=== PATIENT | female | born 1950 | race Caucasian/White ===

== ENCOUNTER 2019-05-10 07:30 | Inpatient (IN) ==
--- NOTE | 2019-04-16 13:55 | PAT Medication Instructions ---
Medication Instructions Date of Service April 16, 2019 Home Medications Medications Rheumatoid Arthritis Injection 1 dose UD Sinus Tablet 1 dose PO HS acetaminophen [Tylenol Extra Strength] 1,000 mg PO UD PRN clopidogrel 75 mg PO QAM cranberry 400 mg PO QAM denosumab [Prolia] 60 mg SUBCUT UD fluticasone furoate-vilanterol [Breo Ellipta] 1 inh INHALATION UD PRN folic acid 1 mg PO TID methotrexate sodium 15 mg PO WK naproxen sodium [Aleve] 220 mg PO UD PRN omeprazole magnesium [Prilosec OTC] 20 mg PO HS prednisone 7.5 mg PO QAM simvastatin 20 mg PO QAM Continue as directed denosumab [Prolia] 60 mg SUBCUT UD ASK your surgeon for instructions naproxen sodium [Aleve] 220 mg PO UD PRN ASK your prescriber and surgeon methotrexate sodium 15 mg PO WK Rheumatoid Arthritis Injection 1 dose UD clopidogrel 75 mg PO QAM STOP taking 2 weeks before surgery cranberry 400 mg PO QAM DO NOT take the morning of surgery folic acid 1 mg PO TID Take morning of surgery With a small sip of water, OTHERWISE NOTHING TO EAT OR DRINK AFTER MIDNIGHT: prednisone 7.5 mg PO QAM simvastatin 20 mg PO QAM fluticasone furoate-vilanterol [Breo Ellipta] 1 inh INHALATION UD PRN (if needed) acetaminophen [Tylenol Extra Strength] 1,000 mg PO UD PRN (if needed) Take evening before surgery omeprazole magnesium [Prilosec OTC] 20 mg PO HS fluticasone furoate-vilanterol [Breo Ellipta] 1 inh INHALATION UD PRN (if needed) folic acid 1 mg PO TID acetaminophen [Tylenol Extra Strength] 1,000 mg PO UD PRN (if needed) Sinus Tablet 1 dose PO HS Other Notes If you have any questions please call us at [phone] or [phone] or [phone] or [phone]
--- NOTE | 2019-04-19 11:40 | Anesthesiology Consultation ---
Date of Service April 19, 2019 Assessment & Plan (1) Encounter for pre-operative examination: Chart Review Chart Review: Acceptable Risk for Surgery (pending pcp clearance) and Patient seen in Pre Admission Testing Teaching & Discussion Instructed NPO after midnight before surgery, except medications with 15 cc of water. Medication instructions provided according to the PAT guidelines. Plavix instructions per surgeon and prescriber. History Surgery Operation Date: 05/10/19 07:45 Proposed Procedures p L4-L5 Decompression and Fusion with Spinal Cord Monitoring - Jasvir Katz DO Height/Weight Height: 5 ft Weight: 79.5 kg Allergies Allergy/AdvReac Type Severity Reaction Status Date / Time No Known Allergies Allergy Verified 04/12/19 15:05 Medications Home Medications Medication Instructions Recorded Confirmed Last Taken Rheumatoid Arthritis Injection 1 dose UD 04/12/19 04/12/19 04/12/19 Sinus Tablet 1 dose PO HS 04/12/19 04/12/19 Unknown acetaminophen [Tylenol Extra 1,000 mg PO UD PRN 04/12/19 04/12/19 Unknown Strength] clopidogrel 75 mg PO QAM 04/12/19 04/12/19 Unknown cranberry 400 mg PO QAM 04/12/19 04/12/19 Unknown denosumab [Prolia] 60 mg SUBCUT UD 04/12/19 04/12/19 Unknown fluticasone furoate-vilanterol 1 inh INHALATION UD PRN 04/12/19 04/12/19 Unknown [Breo Ellipta] folic acid 1 mg PO TID 04/12/19 04/12/19 Unknown methotrexate sodium 15 mg PO WK 04/12/19 04/12/19 Unknown naproxen sodium [Aleve] 220 mg PO UD PRN 04/12/19 04/12/19 Unknown omeprazole magnesium [Prilosec OTC] 20 mg PO HS 04/12/19 04/12/19 Unknown prednisone 7.5 mg PO QAM 04/12/19 04/12/19 Unknown simvastatin 20 mg PO QAM 04/12/19 04/12/19 Unknown Past Medical History Medical History (Updated 04/23/19 @ 12:17 by Crow Choudhary) Acid reflux Amnesia SINGLE EPISODE ~8 YEARS AGO, PT STATES SHE WENT TO THE ER IN [place], SYMPTOMS LASTED A FEW HOURS, STATES NO ETIOLOGY FOUND IN ER. (TIA?) Asthma Using Breo only PRN, ~ twice per month History of stroke Pt reporting h/o "mini strokes in eyes", unable to provide more details. Follows with ophthalmology for this. On plavix from PCP. Attempted to obtain brain imaging from ophtho and PCP, none available. Nausea and vomiting after administration of anesthetic agent Obesity Rheumatoid arthritis On methotrexate and injectable Spinal stenosis Exercise / Class Metabolic Activity III < 4 Walking/Shop/Light housework (DENIES CP OR SOB WITH 1 FOS BUT DOES NOT DO OFTEN, HAS TO GO VERY SLOWLY 2/2 LE WEAKNESS 2/2 SPINAL STENOSIS) Past Family History Family History Sister Family history of diabetes mellitus Sister Family history of diabetes mellitus Past Surgical History Surgical History History of colonoscopy History of foot surgery R&L History of hernia surgery LAMBERTO-ESOPHAGEAL HERNIA History of left shoulder replacement History of total right knee replacement Past Anesthesia History No Hx of Anesthesia Complications and No Family Hx of Anesthesia Complications History of PONV No Hx of Motion Sickness and History of PONV (with foot surgery) Social History Smoking Status: Never smoker Do You Dip or Chew Tobacco: No Hx Alcohol Use: No Hx Substance Use: No substance use type: does not use Review of Systems Pt denies any recent chest pain, shortness of breath above baseline, palpitations, cough, fever or URI. Physical Exam Vital Signs BP: 148/72 (pt to see PCP prior to surgery) P: 69bpm SPO2: 98% RA T: 97.9 F R: 20 ENMT Mouth: + dentition abnormality (missing few bottom molars) and + dentures (full upper); no chipped teeth and no loose teeth Thyromental Distance: > or= 3.5 Finger Breadths (3.5) Mallampati Class: III Neck normal visual inspection; neck extension not limited Respiratory normal respiratory effort Auscultation: lungs clear to auscultation bilaterally Cardiovascular Rate/Rhythm: regular rate and regular rhythm Heart Sounds: no murmur Vessels: no carotid bruit Extremities: no edema Testing Laboratory Results 04/19/19 11:56 04/19/19 11:50 PT 10.2 Seconds (9.0-12.0) 04/19/19 11:56 INR 1.0 (0.9-1.1) 04/19/19 11:56 APTT 25.3 Seconds (21.0-31.0) 04/19/19 11:56 Urine Color Yellow 04/19/19 11:56 Urine Appearance Clear (Clear) 04/19/19 11:56 Urine pH 5.0 (4.5-7.5) 04/19/19 11:56 Ur Specific [place] 1.017 (1.000-1.030) 04/19/19 11:56 Urine Protein Negative (Negative) 04/19/19 11:56 Urine Glucose (UA) Negative (Negative) 04/19/19 11:56 Urine Ketones Negative (Negative) 04/19/19 11:56 Urine Nitrite Negative (Negative) 04/19/19 11:56 Ur Leukocyte Esterase 2+ (Negative) H 04/19/19 11:56 Urine WBC (Auto) 1-5 /hpf (0-5) 04/19/19 11:56 Urine RBC (Auto) 0-4 /hpf (0-4) 04/19/19 11:56 U Hyaline Cast (Auto) 1-5 /lpf (0-5) 04/19/19 11:56 U Epithel Cells (Auto) 0-5 /lpf (0-5) 04/19/19 11:56 Urine Bacteria (Auto) Negative (Negative) 04/19/19 11:56 Blood Type O Positive 04/19/19 11:56 Antibody Screen NEGATIVE 04/19/19 11:56 Electrocardiogram Date: 04/19/19 Findings: + SB @ (59bpm) Suspect V2/V3 lead reversal. Nonspecific T wave abnormality. Chest X-Ray Date: 04/19/19 Findings: + NAD Echocardiogram Date: 04/22/17 EF: 60-65% Normal LV size. Left ventricle has normal systolic function. Normal RV size an d function. Thickened and calcified aortic valve. Mean gradient is 3 mmHg. Mild pulmonic regurgitation. Left atrium is normal. The aortic arch diameter measures 2.6 cm. The abdominal aorta diameter measures 2.1 cm. Pericardial spaces echo done suggested prominent epicardial fat, echodense effusion, or infiltrative process. Normal diastolic function. Small pericardial effusion seen. Cervical Spine Date: 04/19/19 IMPRESSION: 1. No convincing evidence of dynamic subluxation on extension or flexion positioning. The predental interval changes by less than 0.5 mm. 2. Degenerative changes at C5-6. 3. No radiographic evidence of acute osseous injury.
--- NOTE | 2019-04-19 12:51 | XRay Report ---
XR cervical spine 2 or 3V CLINICAL HISTORY: 68 years-old Female presenting with preoperative assessment, rheumatoid arthritis; lateral neutral/flexion/extension. TECHNIQUE: Lateral views of the cervical spine in neutral, flexion, and extension positioning were ob tained. COMPARISON: None. FINDINGS: Normal cervical lordosis on neutral view. There is trace (1 to 2 mm) retrolisthesis of C5 on C6. Lea ining vertebral bodies demonstrate normal height and alignment. Moderate to severe intervertebral dis c height loss at C5-6, where there is also mild posterior spondylitic spurring. Mild to moderate inte rvertebral disc height loss at C6-7 without a significant disc osteophyte complex. Possible underlyin g osteopenia. Allowing for this, no radiographic evidence of fracture or acute appearing subluxation. Normal predental interval. No prevertebral soft tissue swelling. On extension view, expected slight exaggeration of lordosis. No evidence of dynamic subluxation. No s ignificant change in the predental interval. On flexion view, expected straightening of lordosis. No evidence of dynamic subluxation. No significa nt change in the predental interval. IMPRESSION: 1. No convincing evidence of dynamic subluxation on extension or flexion positioning. The predental interval changes by less than 0.5 mm. 2. Degenerative changes at C5-6. 3. No radiographic evidence of acute osseous injury. ACT 112: Negative or not required by law. Electronically signed by: Colby Julian M.D. 04/19/2019 12:49 PM
--- NOTE | 2019-04-19 12:53 | Electrocardiogram Report ---
Test Reason : Blood Pressure : / mmHG Vent. Rate : 059 BPM Atrial Rate : 059 BPM P-R Int : 152 ms QRS Dur : 074 ms QT Int : 408 ms P-R-T Axes : -02 068 072 degrees QTc Int : 403 ms Suspect V2-V3 lead reversal Sinus bradycardia Nonspecific T wave abnormality Abnormal ECG No previous ECGs available Confirmed by Kenneth Fritz ([id number]) on 04/19/2019 12:53:04 PM Referred By: Jasvir Katz Confirmed By:Kenneth Fritz
--- NOTE | 2019-04-19 13:01 | XRay Report ---
XR chest Pre-admission PA/Lat HISTORY: 68 years-old Female pat preoperative exam. No acute chest complaints COMPARISON: None available TECHNIQUE: PA and lateral views of the chest FINDINGS: Cardiac silhouette is mildly enlarged. No overt pulmonary edema. Calcified plaque of the aorta. Opaci ty of the right superior paratracheal tissues may reflect underlying vascular pedicle. Eventration of the right hemidiaphragm. No pneumothorax, pleural effusion, focal airspace consolidation or overt pu lmonary edema. Degenerative changes of the right shoulder and spine. Left shoulder total joint arthro plasty. Surgical clips project over the upper abdomen. IMPRESSION: No acute process. ACT 112: Negative or not required by law. The above report was generated using voice recognition software. It may contain grammatical, syntax o r spelling errors. Electronically signed by: Tigre Hussein M.D. 04/19/2019 12:59 PM
[2019-04-19 13:41] LABS: Basophils # (auto) 0.02 K/uL (0-0.2); Basophils % (auto) 0.2 %; Eosinophils # (auto) 0.31 K/uL (0-0.5); Eosinophils % (auto) 3.4 %; Hematocrit (blood only) 40.4 % (37-47); Immature Granulocytes # (auto) 0.04 K/uL (0.00-0.02); Immature Granulocytes % (auto) 0.4 %; Lymphocytes # (auto) 1.43 K/uL (1.2-3.4); Lymphocytes % (auto) 15.7 %; Mean Corpuscular Hgb Conc 32.2 g/dL (32-36); Mean Corpuscular Volume 90.2 fL (80-100); Mean Platelet Volume 9.1 fL (7.4-10.4); Monocytes # (auto) 0.55 K/uL (0.11-0.59); Monocytes % (auto) 6.1 %; Neutrophils # (auto) 6.74 K/uL (1.4-6.5); Neutrophils % (auto) 74.2 %; Platelet Count 261 K/uL (130-400); RDW Coefficient of Variation 14.4 % (11.5-14.5); RDW Standard Deviation 47.2 fL (36.4-46.3); Red Blood Count 4.48 M/uL (4.2-5.4); White Blood Count 9.09 K/uL (4.8-10.8)
[2019-04-19 13:43] LABS: Appearance Urine Clear (Clear); Bacteria Urine Automated Negative (Negative); Bilirubin Urine Negative (Negative); Blood Urine Negative (Negative); Color Urine Yellow; Epithelial Cell Urine Auto 0-5 /lpf (0-5); Glucose Urine UA Negative (Negative); Ketones Urine Negative (Negative); Leukocyte Esterase Urine 2+ (Negative); Nitrite Urine Negative (Negative); Protein Urine Negative (Negative); RBC Urine Automated 0-4 /hpf (0-4); Specific Gravity Urine 1.017 (1.000-1.030); Urobilinogen Urine Negative (Negative)
[2019-04-19 13:50] LABS: Partial Thromboplastin Ratio 0.9; Partial Thromboplastin Time 25.3 Seconds (21.0-31.0); Prothrombin Time 10.2 Seconds (9.0-12.0)
[2019-04-19 13:50] LABS: BUN Creatinine Ratio 17.7 (10-20); Calcium 9.6 mg/dl (8.5-10.1); Creatinine Clr Calc Pharmacy 55.8 ml/min; Est GFR (African American) 76.1; Est GFR (Non-African American) 65.7; Potassium 4.3 mmol/L (3.5-5.1)
[~2019-05-10 07:30] MED LIST: ACETAMINOPHEN 500 MG TAB PO SCH; CEFAZOLIN 1000MG 1,000 MG/7.5 ML SYR IV SCH; CeleBREX 200 MG CAP PO SCH; GABAPENTIN 300 MG CAP PO SCH; LR 15ML/HR IV SCH
[2019-05-10] MEDS ORDERED: FLUTICASONE/VILANTEROL 100/25MCG 14 PUFFS/INHALER INH PRN (09:00)
[2019-05-10] MEDS ORDERED: fentaNYL citrate 100 MCG/2 ML VIAL ONE (09:24)
[2019-05-10] MEDS ORDERED: MIDAZOLAM HCL 1 MG/ML 2ML VIAL ONE (09:24)
[2019-05-10] MEDS ORDERED: HYDROmorphone INJ 2 MG/ML SYR/VIAL ONE (09:24)
[2019-05-10] MEDS ORDERED: ONDANSETRON INJ 2 MG/ML 2 ML VIAL ONE (09:26)
[2019-05-10] MEDS ORDERED: PROPOFOL IV EMULSION 10 MG/ML 20 ML VIAL IV ONE (09:26)
[2019-05-10] MEDS ORDERED: LIDOCAINE HCL 2% 2 ML VIAL/AMP(20MG/ML) INFIL ONE (09:26)
[2019-05-10] MEDS ORDERED: ROCURONIUM BROMIDE 10 MG/ML 5 ML VIAL ONE (09:26)
[2019-05-10] MEDS ORDERED: LARYING-O-JET KIT (LTA) ONE (09:26)
[2019-05-10] MEDS ORDERED: DEXAMETHASONE SOD INJ 4 MG/ML VIAL ONE (09:27)
[2019-05-10] MEDS ORDERED: NEOSTIGMINE METHYLSULFATE 1 MG/ML 10ML VIAL ONE (09:27)
[2019-05-10] MEDS ORDERED: GLYCOPYRROLATE 0.2 MG/ML VIAL ONE (09:27)
--- NOTE | 2019-05-10 10:02 | History & Physical Report ---
Date of Service May 10, 2019 Assessment & Plan (1) Neurogenic claudication due to lumbar spinal stenosis: L4-L5 decompression fusion Present on Admission?: Yes History of Present Illness Chief Complaint: Back and bilateral leg pain Primary Care Provider: Christie Fong This is a 68-year-old female who presents with chronic persistent back and bilateral leg pain. After failing extensive course of nonoperative care is here for surgical intervention. Allergies Allergy/AdvReac Type Severity Reaction Status Date / Time No Known Allergies Allergy Verified 05/10/19 08:27 Home Medications Home Medications Medication Instructions Recorded Confirmed Type Sinus Tablet 1 dose PO HS 04/12/19 05/10/19 History acetaminophen [Tylenol Extra 1,000 mg PO UD PRN 04/12/19 05/10/19 History Strength] clopidogrel 75 mg PO QAM 04/12/19 05/10/19 History cranberry 400 mg PO QAM 04/12/19 05/10/19 History denosumab [Prolia] 60 mg SUBCUT UD 04/12/19 05/10/19 History fluticasone furoate-vilanterol 1 inh INHALATION UD PRN 04/12/19 05/10/19 History [Breo Ellipta] folic acid 3 mg PO DAILY 04/12/19 05/10/19 History methotrexate sodium 15 mg PO WK 04/12/19 05/10/19 History naproxen sodium [Aleve] 220 mg PO UD PRN 04/12/19 05/10/19 History omeprazole magnesium [Prilosec OTC] 20 mg PO HS 04/12/19 05/10/19 History prednisone 7.5 mg PO QAM 04/12/19 05/10/19 History simvastatin 20 mg PO QAM 04/12/19 05/10/19 History certolizumab pegol [Cimzia] 400 mg SUBCUT MONTHLY 05/10/19 05/10/19 History Past Med/Surg History Family History Sister Family history of diabetes mellitus Sister Family history of diabetes mellitus Social History Preferred Language: Ecuadorean Communication Ability: Effective Implementation Consultant Required: No Beliefs That Will Affect Care: None Current Living Situation: Spouse Other Information That Helps Us Care for You: Yes ([facility]) Feels Safe at Home: Yes Smoking Status: Never smoker Do You Dip or Chew Tobacco: No ; Hx Alcohol Use: No Hx Substance Use: No Physical Exam Physical Exam: Patient is alert and oriented neurologically intact. Results & Data Vital Signs (Past 12 Hours) Vital Signs Temp Pulse Resp BP Pulse Ox 05/10/19 08:43 36.4 C L 57 L 18 154/84 H 95
--- NOTE | 2019-05-10 10:02 | History & Physical Bridge Note ---
Date of Service May 10, 2019 History & Physical Bridge Note I have examined the patient, reviewed the History & Physical and in the interval since the performance of the History & Physical I have noted the following changes of clinical significance: no changes noted
[2019-05-10] MEDS ORDERED: BUPIVACAINE/EPINEPHRINE 0.5% MPF 1:200,000 10 ML VIAL ONE (10:17)
[2019-05-10] MEDS ORDERED: BACITRACIN INJ 50,000 UNIT VIAL ONE (10:17)
[2019-05-10] MEDS ORDERED: fentaNYL citrate 100 MCG/2 ML VIAL IV PRN (11:06)
[2019-05-10] MEDS ORDERED: HYDROmorphone INJ 1 MG/ML SYRINGE IV PRN ×2 (11:06→13:52)
[2019-05-10] MEDS ORDERED: ePHEDrine sulfate 50 MG/ML AMP IV PRN (11:06)
[2019-05-10] MEDS ORDERED: ATROPINE SULFATE 0.1 MG/ML 10ML SYR IV PRN (11:06)
[2019-05-10] MEDS ORDERED: ONDANSETRON INJ 2 MG/ML 2 ML VIAL IV PRN ×2 (11:06→13:52)
[2019-05-10] MEDS ORDERED: PHENYLEPHRINE 100MCG/ML 5ML SYR ONE (11:57)
[2019-05-10] MEDS ORDERED: FLOSEAL HEMOSTATIC MATRIX 10ML TOP ONE (11:58)
[2019-05-10] MEDS ORDERED: KETOROLAC 30 MG/ML VIAL ONE (12:07)
--- NOTE | 2019-05-10 12:07 | Operative Report ---
Post Operative Report Pre & Post Diagnosis Operation Date: 05/10/19 10:05 Pre-Op Diagnosis: Lumbar spinal stenosis with neurogenic claudication Lumbar spondylolisthesis L4-5 Post-Op Diagnosis: Same I identified the patient and participated in the time-out.: Yes Procedure Operation Date: 05/10/19 10:05 Actual Procedures #1 lumbar decompression with bilateral medial facetectomies and foraminotomies L4-5, L5-S1. #2 posterior spinal fusion L4-5. #3 placement posterior instrumentation L4-5. #4 interbody fusion L4-5. #5 placed a peek cage 12 x 22 mm at L4-5. #6 placement of locally harvested morselized autograft in the posterior lateral gutters. #7 placement infuse collagen sponge, master graft in the posterior lateral gutters and ostial amp and interbody space. Surgeon Jasvir Katz, Director Loan Virginia Puentes Estimated Blood Loss 100 Findings See Below Patient is 5 foot tall weighing over 78 kg with a BMI of 34. The patient's body habitus did add significant technical difficulty requiring her deepest retractors and longus instruments in order to perform her procedure. This did add 25% increase to the operative time. Specimens None Indications This is a 60-year-old female presents with above-mentioned diagnosis after failing extensive course of nonoperative care she elected to go the beverage procedure. Description of Procedure Patient was met with identified informed consent obtained. Patient was then taken to the operative suite underwent an patient placed in prone position the Cale table on top of the Nigel frame. All bony prominences well-padded eyes inspected to ensure no external pressure placed upon the. This point the lumbar spine was prepped and draped in a sterile fashion. Sharp dissection with the assistance of Bovie cautery was performed down to and exposing the lamina and transverse processes of L4 and L5. From a caudal to cephalad fashion complete laminectomy of L4 was performed partial laminectomy of L3 was performed including bilateral medial facetectomies and foraminotomies addressing severe s tenosis. Marked instability was appreciated. Pedicle screws were then placed in L4 and L5 bilaterally with assistance of fluoroscopy and proper sized ramirez placed. Believe a trans-foramen approach and ready complete discectomy was performed endplates curetted to subcortical bleeding bone and a 12 x 22 mm peek cage filled with osteo-bone graft tapped in position. The rods were then locked in final position bilaterally. The transverse processes of L4 and L5 bur to subcortical bleeding bone. Infuse collagen sponge mass graft local autograft placed in the posterior lateral gutters. 15 round JAMIE drain inserted. Incision was then closed with 1 Vicryl the fascia 2-0 Vicryl subcutaneously and 4 Monocryl for final skin closure. Steri-Strip sterile dressing placed per patient will continue to PACU stable initially please note Virginia Puentes present at the entire procedure involved the patient positioning complex portions of the surgery and final skin closure. Lastly spinal cord monitoring was utilized that the procedure no changes noted. I attest to the content of the Intraoperative Record and any orders documented therein. Any exceptions are noted below.
--- NOTE | 2019-05-10 12:13 | Fluoroscopy Report ---
FL lumbar spine 2-3V CLINICAL HISTORY: L4-L5 DECOMPRESSION AND FUSION COMPARISON STUDY: None FLUOROSCOPY TIME: 16 seconds. NUMBER OF FLUOROSCOPIC IMAGES: 2 FINDINGS: 2 intraoperative fluoroscopic spot images reveal postsurgical changes of an L4-5 discectomy and interbody fusion. There are L4 and L5 pedicle screws and adjoining spinal rods. IMPRESSION: Intraoperative fluoroscopic spot images demonstrating an L4-5 spinal decompression and f usion ACT 112: Negative or not required by law. Electronically signed by: Mike Solis M.D. 05/10/2019 12:12 PM
--- NOTE | 2019-05-10 13:27 | Anesthesiology Progress Note ---
Date of Service May 10, 2019 Anesthesia Post Procedure Vital Signs Vital Signs: Temp Pulse Pulse Resp BP Pulse Ox 05/10/19 13:20 36.7 C 91 H 14 159/78 H 94 05/10/19 13:10 36.7 C 83 14 154/75 H 94 05/10/19 13:00 36.7 C 83 14 150/84 H 94 05/10/19 12:50 89 14 172/84 H 93 05/10/19 12:40 93 H 14 173/85 H 98 05/10/19 12:30 97 H 14 164/91 H 98 05/10/19 12:22 36.8 C 101 H 16 159/92 H 99 05/10/19 08:43 36.4 C L 57 L 18 154/84 H 95 Transfer of Care Handoff Completed per policy Notes Mental Status: alert / awake / arousable and participated in evaluation Patient Amnestic to Procedure: Yes Nausea / Vomiting: adequately controlled Pain: adequately controlled Airway Patency, RR, SpO2: stable & adequate BP & HR: stable & adequate Hydration State: stable & adequate Anesthetic Complications: no major complications apparent and Pt Satisfied with anesthetic care
[2019-05-10] MEDS ORDERED: LORazepam 0.5 MG TAB PO PRN (13:52)
[2019-05-10] MEDS ORDERED: ACETAMINOPHEN 1,000 MG/100 ML VIAL IV PRN (13:52)
[2019-05-10] MEDS ORDERED: ONDANSETRON 4 MG OD TAB PO PRN (13:52)
[2019-05-10] MEDS ORDERED: MAGNESIUM HYDROXIDE SUSP 30 ML UDC PO PRN (13:52)
[2019-05-10] MEDS ORDERED: HYDROmorphone INJ 0.5 MG/0.5 ML SYR IV PRN (13:52)
[2019-05-10] MEDS ORDERED: LORazepam 0.5 MG/1 ML VIAL IV PRN (13:52)
[2019-05-10] MEDS ORDERED: PROMETHAZINE HCL 12.5 MG in SODIUM CHLORIDE 0.9% 50 ML IV PRN (13:52)
[2019-05-10] MEDS ORDERED: METOCLOPRAMIDE HCL INJ 5 MG/ML 2 ML VIAL IV PRN (13:52)
[2019-05-10] MEDS ORDERED: NON-FORMULARY MEDICATION (Denosumab 60 MG) SQ SCH (13:52)
[2019-05-10] MEDS ORDERED: DO NOT ADMINISTER PNEUMOCOCCAL VACCINE PRN (13:52)
[2019-05-10] MEDS ORDERED: FAMOTIDINE 20 MG TAB PO PRN (13:52)
[2019-05-10] MEDS ORDERED: DO NOT ADMINISTER FLU VACCINE PRN (13:52)
[2019-05-10] MEDS ORDERED: NALOXONE HCL 0.4 MG/1 ML VIAL/CARP IV PRN (13:52)
[2019-05-10] MEDS ORDERED: SOD PHOSPHATE/SOD BIPHOSPHATE ENEMA 132 ML BTL PR PRN (13:52)
[2019-05-10] MEDS ORDERED: ALUMINUM/MAGNESIUM SUSP 30 ML UDC PO PRN (13:52)
[2019-05-10] MEDS ORDERED: bisacodyL 10 MG SUPP PR PRN (13:52)
[2019-05-10] MEDS: SODIUM CHLORIDE 0.9% 1000ML 1,000 ML IV SCH ×2 (14:37→15:28)
--- NOTE | 2019-05-10 14:43 | Consultation ---
Date of Consultation May 10, 2019 Assessment & Plan (1) Neurogenic claudication due to lumbar spinal stenosis: Status post L4-L5 lumbar decompression fusion by Dr. Katz POD #0 EBL 100 mL; JAMIE drain 40 mL Tolerated procedure well Pain/wound management per Ortho Activity and therapy as directed by Ortho Encourage incentive spirometry and wean O2 as able Trend H&H (2) Rheumatoid arthritis: Currently controlled on methotrexate, prednisone, Cimzia Has held mtx x 1 week resume at discretion of surgeon/ brush hand continue prednisone 7.5mg post operatively (3) Hx of transient ischemic attack (TIA): History of TIA x2 in 2015 2012 History of left eye arterial occlusion On Plavix and statin as outpatient Resume Plavix at discretion of orthopedic surgeon (4) Asthma: Well-controlled on Breo No acute exacerbation (5) Acid reflux: Continue PPI (6) DVT prophylaxis: SCD/teds, per primary Disposition: Per primary Follow-up: PCP Christie Fong upon discharge Pt was seen and examined in collaboration with Dr. Raya, please see addendum Starting 05/11/2019 pt will be under the care of Dr. Kilgore Thank you for this consultation. We will follow the patient with you during their hospital stay. You can reach a [facility] of [facility]/10 via pager @ [phone]. Supervising Physician Co-Signing Physician Notes HISTORY: Record reviewed. Patient interviewed and examined. Care coordinated with Lindsay Hayes PA-C. Please refer to her documentation for complete history. Briefly, 68-year-old female with history of asthma, TIA, rheumatoid arthritis, and other problems. Lumbar decompression/fusion performed earlier today. Doing fairly well postoperatively. Experiencing nausea, but no emesis. No chest pain, cough, SOB. Pain well-controlled. EXAM: General- no distress Lungs- clear to auscultation; no respiratory distress Cardiovascular- RRR; II/ systolic murmur at base; no gallop; no JVD; no pretibial edema Abdomen- + bowel sounds, soft, nontender Extremities- no cyanosis; no calf tenderness Neuro- alert, oriented Skin- warm & dry ASSESSMENT AND PLAN: S/P lumbar decompression / fusion. Asthma. Pulmonary status stable. Incentive spirometry. History of TIA. Resume Plavix when OK from surgical perspective. RA Managed with methotrexate, Cimzia, and prednisone. Received IV dexamethasone this morning, so probably no need for intravenous hydrocortisone perioperatively. Please refer to DIMA Hayes's documentation for discussion of other issues. Thank you for this consultation. We will follow the patient with you during their hospital stay. My cell # is [phone]. You can reach a member of the [facility] Team 07/10 via pager @ [phone]. History of Present Illness Requesting Physician: Dr. 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 Katz. Patient had lumbar spinal stenosis with neurogenic claudication and failed outpatient conservative treatment. She underwent lumbar decompression fusion of L4-L5 today. Tolerated the procedure well. She is having postop dry heaving which she states, "is not abnormal after surgery." She currently denies any fever, chills, sweats, lightheadedness, dizziness, headache, chest pain, shortness breath, cough, emesis, abdominal pain. They did not place Persaud catheter. Prior to procedure she denies any dysuria, increased urgency or frequency with urination, melena or hematochezia. Due to dry heave lacks appetite but states, "my breath is awful I'm sorry." Her hx of RA she states is the, "bear in here life." Currently well controlled on MTX, prednisone and cimzia. She has held MTX for 1 week but has continued prednisone. She has hx of TIA x 2 with L eye arterial occlusion. She is on plavix for this. No recurrence of sx. Her asthma is well controlled with Breo. She does not need rescue inhaler. Allergies Allergy/AdvReac Type Severity Reaction Status Date / Time No Known Allergies Allergy Verified 05/10/19 08:27 Home Medications Home Medications Medication Instructions Recorded Confirmed Type Sinus Tablet 1 dose PO HS 04/12/19 05/10/19 History acetaminophen [Tylenol Extra 1,000 mg PO UD PRN 04/12/19 05/10/19 History Strength] clopidogrel 75 mg PO QAM 04/12/19 05/10/19 History cranberry 400 mg PO QAM 04/12/19 05/10/19 History denosumab [Prolia] 60 mg SUBCUT UD 04/12/19 05/10/19 History fluticasone furoate-vilanterol 1 inh INHALATION UD PRN 04/12/19 05/10/19 History [Breo Ellipta] folic acid 3 mg PO DAILY 04/12/19 05/10/19 History methotrexate sodium 15 mg PO WK 04/12/19 05/10/19 History naproxen sodium [Aleve] 220 mg PO UD PRN 04/12/19 05/10/19 History omeprazole magnesium [Prilosec OTC] 20 mg PO HS 04/12/19 05/10/19 History prednisone 7.5 mg PO QAM 04/12/19 05/10/19 History simvastatin 20 mg PO QAM 04/12/19 05/10/19 History certolizumab pegol [Cimzia] 400 mg SUBCUT MONTHLY 05/10/19 05/10/19 History Patient History Medical History (Updated 05/10/19 @ 14:36 by Lindsay Hayes PA-C) Acid reflux Amnesia SINGLE EPISODE ~8 YEARS AGO, PT STATES SHE WENT TO THE ER IN [place], SYMPTOMS LASTED A FEW HOURS, STATES NO ETIOLOGY FOUND IN ER. (TIA?) Asthma Using Breo only PRN, ~ twice per month History of stroke Pt reporting h/o "mini strokes in eyes", unable to provide more details. Follows with ophthalmology for this. On plavix from PCP. Attempted to obtain brain imaging from ophtho and PCP, none available. Hx of transient ischemic attack (TIA) Obesity Rheumatoid arthritis On methotrexate and injectable Spinal stenosis Surgical History History of colonoscopy History of foot surgery R&L History of hernia surgery LAMBERTO-ESOPHAGEAL HERNIA History of left shoulder replacement History of total right knee replacement Nausea and vomiting after administration of anesthetic agent Family History (Updated 05/10/19 @ 14:31 by Lindsay Hayes PA-C) Sister Family history of diabetes mellitus Sister Family history of diabetes mellitus Mother Lung disease Social History Preferred Language: Citizen Of [place] Communication Ability: Effective Food Dehydrator Operator Required: No Beliefs That Will Affect Care: None Current Living Situation: Spouse Other Information That Helps Us Care for You: Yes ([facility] OP) Feels Safe at Home: Yes Smoking Status: Never smoker Do You Dip or Chew Tobacco: No ; Hx Alcohol Use: No Hx Substance Use: No Review of Systems Review of Systems: All systems reviewed & are unremarkable except as noted in HPI & below Physical Exam Physical Exam: Constitutional: WD/WN, drowsy, female, vitals as above, NAD, sitting up in bed, pleasant, conversing easily Head: Normocephalic, Atraumatic Eyes: PERRL, conjunctivae normal, anicteric sclerae ENMT: external ear and nose normal, oropharynx normal with dry mucous membranes Neck: trachea midline, no thyromegaly normal visual inspection Respiratory: normal respiratory effort, lungs clear to auscultation, no wheeze, rales, rhonchi. Normal insp/exp effort, no accessory muscle use Cardiovascular: RRR, no murmur, no edema, SCD/teds in place vessels: no JVD or carotid bruit Chest: normal inspection of chest Abdomen: normal bowel sounds, soft, nontender, no hepatosplenomegaly Musculoskeletal: no cyanosis or clubbing, active range of motion x4, bilateral pedal pulse +2 Skin: no rashes, warm and dry normal turgor, lumbar dressing CDI, JAMIE drain with serosanguineous drainage Neurologic: PERRL, EOMI, accommodation nl, no face palsy, no dysarthria CN's II-XI intact bilaterally and moves all extremities Psychiatric: A+Ox3, euthymic affect Lymphatic: no cervical or axillary lymphadenopathy : deferred, no Persaud placed Results & Data ([facility]) Vital Signs (Past 12 Hours) Vital Signs Temp Pulse Pulse Resp BP Pulse Ox 05/10/19 14:00 36.8 C 91 H 16 147/80 H 97 05/10/19 13:20 36.7 C 91 H 14 159/78 H 94 05/10/19 13:10 36.7 C 83 14 154/75 H 94 05/10/19 13:00 36.8 C 83 16 169/92 H 96 05/10/19 12:50 89 14 172/84 H 93 05/10/19 12:40 93 H 14 173/85 H 98 05/10/19 12:30 97 H 14 164/91 H 98 05/10/19 12:22 36.8 C 101 H 16 159/92 H 99 05/10/19 08:43 36.4 C L 57 L 18 154/84 H 95 Laboratory Results Preoperative lab work 04/19/19: H&H 13.0 and 40.0, platelet 261, WBC 9.09 133, BUN 16, creatinine 0.90, glucose 106 Diagnostic Findings Preop chest x-ray revealed no acute cardiopulmonary abnormality Echocardiogram from 04/2017 revealed EF 60 to 65%, thickened calcified AV, normal diastolic function, echodense pericardial space, likely prominent epicardial fat Medications Administered Acetaminophen (Tylenol) 1,000 mg PO PREOP DEN Stop: 05/10/19 18:00 Last Admin: 05/10/19 08:54 Dose: 500 mg Documented by: [id number] Celecoxib (Celebrex) 200 mg PO PREOP DEN Stop: 05/10/19 18:00 Last Admin: 05/10/19 08:55 Dose: 200 mg Documented by: [id number] Gabapentin (Neurontin) 300 mg PO PREOP DEN Stop: 05/10/19 18:00 Last Admin: 05/10/19 08:54 Dose: 300 mg Documented by: [id number] Cefazolin Sodium (Ancef 1000mg) 1,000 mg in 7.5 mls @ 2.5 mls/min IV PREOP DEN; Protocol Stop: 05/10/19 18:00 Last Admin: 05/10/19 10:30 Dose: 2.5 mls/min Documented by: [id number] Lactated Ringer's (Lr) 1,000 mls @ 15 mls/hr IV .Q24H DEN Stop: 05/11/19 05:59 Last Infusion: 05/10/19 10:30 Dose: 0 mls/hr Documented by: [id number] Admin: 05/10/19 08:36 Dose: 15 mls/hr Documented by: [id number] Ondansetron HCl (Zofran) 4 mg IV Q6H PRN PRN Reason: Nausea &/or Vomiting Stop: 06/09/19 13:51 Last Admin: 05/10/19 14:28 Dose: 4 mg Documented by: [id number] Discontinued Medications Bacitracin (Bacitracin) Confirm Administered Dose 50,000 units .ROUTE .STK-MED ONE Stop: 05/10/19 10:18 Last Admin: 05/10/19 11:12 Dose: 50,000 units Documented by: [id number] Bupivacaine HCl/Epinephrine Bitart (Sensorcaine/Epinephrine 0.5% Mpf 1:200,000) Confirm Administered Dose 30 ml .ROUTE .STK-MED ONE Stop: 05/10/19 10:18 Last Admin: 05/10/19 11:12 Dose: 30 ml Documented by: [id number] Miscellaneous (Floseal Hemostatic Matrix 10ml) 15 ml TOP ONCE ONE Stop: 05/10/19 11:59 Last Admin: 05/10/19 14:27 Dose: Not Given Documented by: [id number] Ondansetron HCl (Zofran) 4 mg IV ONCE PRN PRN Reason: PACU Use Only-Nausea/Vomiting Stop: 05/10/19 16:07 Last Admin: 05/10/19 12:49 Dose: 4 mg Documented by: [id number] ECG Rate (beats per minute): 59 Rhythm: sinus bradycardia Findings: + nonspecific-ST abn (Upsloping ST segment inferiorly)
[2019-05-10] MEDS: DOCUSATE SODIUM/SENNA 50/8.6MG TAB PO SCH (20:55)
[2019-05-10] MEDS: PANTOprazole 40 MG TAB PO SCH (20:55)
[2019-05-10] MEDS ORDERED: SINUS PO SCH (21:00)
[2019-05-11] MEDS: ACETAMINOPHEN 500 MG TAB PO PRN ×3 (00:44→16:02)
[2019-05-11] MEDS: POLYETHYLENE (MIRALAX) 17 GM PACK PO SCH ×3 (05:28→17:51)
[2019-05-11 07:00] LABS: Eosinophils # (auto) 0.01 K/uL (0-0.5); Eosinophils % (auto) 0.1 %; Hematocrit (blood only) 35.5 % (37-47); Hemoglobin 11.3 g/dL (12.0-16.0); Immature Granulocytes # (auto) 0.04 K/uL (0.00-0.02); Immature Granulocytes % (auto) 0.4 %; Lymphocytes % (auto) 6.2 %; Mean Corpuscular Hgb Conc 31.8 g/dL (32-36); Mean Platelet Volume 9.4 fL (7.4-10.4); Monocytes # (auto) 0.95 K/uL (0.11-0.59); Monocytes % (auto) 8.4 %; Neutrophils # (auto) 9.55 K/uL (1.4-6.5); Neutrophils % (auto) 84.9 %; Platelet Count 241 K/uL (130-400); RDW Coefficient of Variation 14.5 % (11.5-14.5); RDW Standard Deviation 48.4 fL (36.4-46.3); White Blood Count 11.25 K/uL (4.8-10.8)
[2019-05-11 07:34] LABS: BUN Creatinine Ratio 11.3 (10-20); Calcium 8.7 mg/dl (8.5-10.1); Creatinine Clr Calc Pharmacy 44.3 ml/min; Est GFR (African American) 57.8; Est GFR (Non-African American) 49.9
--- NOTE | 2019-05-11 07:52 | Anesthesiology Progress Note ---
Date of Service May 11, 2019 Anesthesia Post Procedure Vital Signs Vital Signs: Temp Pulse Pulse Resp BP Pulse Ox 05/11/19 07:35 36.3 C L 78 18 112/72 100 05/11/19 03:35 36.7 C 82 16 120/72 94 05/10/19 22:51 36.8 C 79 16 131/81 94 05/10/19 21:49 36.6 C 73 18 126/74 95 05/10/19 16:30 36.6 C 90 18 120/74 98 05/10/19 15:31 36.5 C 84 18 122/77 97 05/10/19 14:00 36.8 C 91 H 16 147/80 H 97 05/10/19 13:20 36.7 C 91 H 14 159/78 H 94 05/10/19 13:10 36.7 C 83 14 154/75 H 94 05/10/19 13:00 36.8 C 83 16 169/92 H 96 05/10/19 12:50 89 14 172/84 H 93 05/10/19 12:40 93 H 14 173/85 H 98 05/10/19 12:30 97 H 14 164/91 H 98 05/10/19 12:22 36.8 C 101 H 16 159/92 H 99 05/10/19 08:43 36.4 C L 57 L 18 154/84 H 95 Pain Intensity Lower Back: Pain Intensity: 0 Notes Mental Status: alert / awake / arousable and participated in evaluation Patient Amnestic to Procedure: Yes Nausea / Vomiting: adequately controlled Pain: adequately controlled Airway Patency, RR, SpO2: stable & adequate BP & HR: stable & adequate Hydration State: stable & adequate Anesthetic Complications: no major complications apparent and Pt Satisfied with anesthetic care
--- NOTE | 2019-05-11 08:50 | Hospitalist Progress Note ---
Date of Service May 11, 2019 Assessment & Plan (1) Neurogenic claudication due to lumbar spinal stenosis: - POD#1 L4-L5 lumbar decompression fusion by Dr. Katz - activity and wound care orders as per ortho - pain control with bowel regimen - PT/OT - monitor H/H for acute blood loss anemia and transfuse blood products PRN - EBL 100ml, JAMIE output to date 250ml - hgb stable at 11.3 (pre op hgb 13) (2) Rheumatoid arthritis: -Currently managed on methotrexate, prednisone, Cimzia -Has held mtx x 1 week; resume at discretion of surgeon/ demurrage clerk -continue prednisone 7.5mg post operatively (3) Hx of transient ischemic attack (TIA): -History of TIA x2 in 2015 2012, History of left eye arterial occlusion -On Plavix and statin as outpatient -Resume Plavix at discretion of orthopedic surgeon (4) Asthma: -no signs of acute exacerbation -continue home inhalers (5) Acid reflux: -Continue PPI (6) DVT prophylaxis: -TEDs/SCDs as per spine ortho Admission and Anticipated Discharge Date Admission Date: May 10, 2019 Supervising Physician Co-Signing Physician Notes Patient seen and examined by myself Care coordinated with Chiara WAHL Refer to her note for details. Patient reports feeling better Has been ambulating without much email marketing assistant Yet to pass flatus or have a bowel movement Reports pain is well controlled S/P lumbar decompression and fusion Pain well controlled Can resume plavix when ok by surgeon Continue prednisone. Resume MTx at discretion of demurrage clerk Refer to Blanche WAHL's note for details of other problems Subjective Patient seen and examined. Sitting up in the chair, having breakfast. Pain is well controlled. No numbness or tingling to the lower extremities. Denies abdominal pain and nausea. No BM or flatus. Urinating without problem. Denies chest pain, shortness of breath, lightheadedness, dizziness. Physical Exam Constitutional: no acute distress sitting up in the chair Respiratory: normal respiratory effort, lungs clear to auscultation Cardiovascular: Rate/Rhythm: regular rate and regular rhythm Vessels: normal peripheral pulses Extremities: no edema Gastrointestinal (Abdomen): Inspection/Auscultation: normal bowel sounds Percussion/Palpation: abdomen soft; abdomen nontender Musculoskeletal: s/p back surgery, dressing dry and intact, drain in place draining bloody drainage, pedal pushes and pulls strong BL Psychiatric: Orientation: alert and oriented x 3 Results & Data ([facility]) Vital Signs (Past 12 Hours) Vital Signs Temp Pulse Pulse Resp BP Pulse Ox 05/11/19 07:35 36.3 C L 78 18 112/72 100 05/11/19 03:35 36.7 C 82 16 120/72 94 05/10/19 22:51 36.8 C 79 16 131/81 94 05/10/19 21:49 36.6 C 73 18 126/74 95 Laboratory Results Short CBC 05/11/19 Range/Units 06:49 WBC 11.25 H (4.8-10.8) K/uL Hgb 11.3 L (12.0-16.0) g/dL Hct 35.5 L (37-47) % Plt Count 241 (130-400) K/uL BMP 05/11/19 06:49 Sodium 136 Potassium 4.0 Chloride 104 Carbon Dioxide 22 BUN 13 Creatinine 1.13 Glucose 151 H Calcium 8.7
[2019-05-11] MEDS ORDERED: NON-FORMULARY MEDICATION (Cranberry 400 MG) PO SCH (09:00)
[2019-05-11] MEDS: FOLIC ACID 1 MG TAB PO SCH (09:03)
[2019-05-11] MEDS: SIMVASTATIN 20 MG TAB PO SCH (09:03)
[2019-05-11] MEDS: predniSONE 5 MG TAB PO SCH (09:04)
--- NOTE | 2019-05-11 13:25 | Orthopedic Progress Note ---
Date of Service May 11, 2019 Assessment & Plan (1) Neurogenic claudication due to lumbar spinal stenosis: Continue physical therapy monitor her JAMIE output anticipate discharge home in the next few days. Present on Admission?: Yes Admission and Anticipated Discharge Date Admission Date: May 10, 2019 Subjective Back pain controlled leg symptoms markedly improved. Physical Exam Physical Exam: Patient is good strength testing appears comfortable. Results & Data ([facility]) Vital Signs (Past 12 Hours) Vital Signs Temp Pulse Resp BP Pulse Ox 05/11/19 07:35 36.3 C L 78 18 112/72 100 05/11/19 03:35 36.7 C 82 16 120/72 94
[2019-05-11] MEDS: TRAMADOL HCL 50 MG TABLET PO PRN ×2 (16:01→22:05)
[2019-05-11] MEDS: DOCUSATE SODIUM/SENNA 50/8.6MG TAB PO SCH (20:14)
[2019-05-11] MEDS: PANTOprazole 40 MG TAB PO SCH (20:14)
[2019-05-11] MEDS ORDERED: Nursing to Pharmacy Communication ONE (22:08)
[2019-05-12] MEDS: OXYCODONE HCL IR 5 MG TAB (IMMEDIATE RELEASE) PO PRN ×4 (04:32→16:52)
[2019-05-12 05:54] LABS: Hematocrit (blood only) 32.3 % (37-47); Hemoglobin 10.4 g/dL (12.0-16.0); Mean Corpuscular Hemoglobin 29.3 pg (25-34); Mean Corpuscular Hgb Conc 32.2 g/dL (32-36); Mean Platelet Volume 9.3 fL (7.4-10.4); Platelet Count 213 K/uL (130-400); RDW Coefficient of Variation 14.5 % (11.5-14.5); RDW Standard Deviation 48.8 fL (36.4-46.3); Red Blood Count 3.55 M/uL (4.2-5.4); White Blood Count 9.01 K/uL (4.8-10.8)
[2019-05-12 06:29] LABS: Creatinine Clr Calc Pharmacy 54.4 ml/min; Est GFR (African American) 74.2; Potassium 3.8 mmol/L (3.5-5.1)
[2019-05-12] MEDS: FOLIC ACID 1 MG TAB PO SCH (08:28)
[2019-05-12] MEDS: predniSONE 5 MG TAB PO SCH (08:28)
[2019-05-12] MEDS: SIMVASTATIN 20 MG TAB PO SCH (08:28)
--- NOTE | 2019-05-12 10:49 | Hospitalist Progress Note ---
Date of Service May 12, 2019 Assessment & Plan (1) Neurogenic claudication due to lumbar spinal stenosis: - POD#2 L4-L5 lumbar decompression fusion by Dr. Katz - activity and wound care orders as per ortho - pain control with bowel regimen - PT/OT - monitor H/H for acute blood loss anemia and transfuse blood products PRN - EBL 100ml, JAMIE output to date 380ml (2) Acute blood loss anemia: -pre op hgb 13.0 -> 11.3 -> 10.4 -no role for PRBC transfusion at this time (3) Rheumatoid arthritis: -Currently managed on methotrexate, prednisone, Cimzia -Has held mtx x 1 week; resume at discretion of surgeon/ motion picture commentator -continue prednisone 7.5mg post operatively (4) Hx of transient ischemic attack (TIA): -History of TIA x2 in 2015 2012, History of left eye arterial occlusion -On Plavix and statin as outpatient -Resume Plavix at discretion of orthopedic surgeon (5) Asthma: -no signs of acute exacerbation -continue home inhalers (6) Acid reflux: -Continue PPI (7) DVT prophylaxis: -TEDs/SCDs as per spine ortho Admission and Anticipated Discharge Date Admission Date: May 10, 2019 Subjective Patient seen and examined. Sitting up in chair. Tolerated therapy well this morning. Pain controlled with current pain medication regimen. Denies chest pain and shortness of breath. No abdominal pain or nausea. + BM Physical Exam Constitutional: no acute distress sitting up in the chair Respiratory: normal respiratory effort, lungs clear to auscultation Cardiovascular: Rate/Rhythm: regular rate and regular rhythm Vessels: normal peripheral pulses Extremities: no edema Musculoskeletal: S/p back surgery, strength strong and equal in bilateral lower extremities, drain in place draining a scant amount of serosanguineous drainage Psychiatric: Orientation: alert and oriented x 3 Results & Data ([facility]) Vital Signs (Past 12 Hours) Vital Signs Temp Pulse Resp BP Pulse Ox 05/12/19 06:30 36.4 C L 69 18 108/66 99 05/11/19 23:07 36.5 C 73 16 131/81 98 Laboratory Results Short CBC 05/12/19 Range/Units 05:42 WBC 9.01 (4.8-10.8) K/uL Hgb 10.4 L (12.0-16.0) g/dL Hct 32.3 L (37-47) % Plt Count 213 (130-400) K/uL BMP 05/12/19 05:42 Sodium 140 Potassium 3.8 Chloride 108 H Carbon Dioxide 28 BUN 16 Creatinine 0.92 Glucose 105 H Calcium 9.0
--- NOTE | 2019-05-12 13:00 | Discharge Summary ---
Date of Service May 12, 2019 Admission HPI Per Admitting Provider This is a 68-year-old female who presents with chronic persistent back and bilateral leg pain. After failing extensive course of nonoperative care is here for surgical intervention. Principal Diagnosis Lumbar spinal stenosis with neurogenic claudication Discharge Data Allergies Allergy/AdvReac Type Severity Reaction Status Date / Time No Known Allergies Allergy Verified 05/10/19 08:27 Consultations 05/10/19 13:52 Consult Case Management - Discharge Planning Routine Consult Hospitalist Routine Procedures Performed Operation Date: 05/10/19 10:05 Actual Procedures p L4-L5 Decompression and Fusion, Spinal Cord Monitoring, Application of Bone Infuse and Allograft - Jasvir Katz DO Ordered Studies 05/10/19 10:05 FL fluoroscopy <1hr Routine FL lumbar spine 2-3V Routine Hospital Course (1) Neurogenic claudication due to lumbar spinal stenosis: Patient underwent lumbar decompression fusion tolerated so was taken to orthopedic for possibly. Postop day 1 leg symptoms were improved back pain controlled to progress the postop day #2 with marked improvement of her pain JAMIE drain decreasing probably extra strength testing. Subsequent discharge home. Discharge orders and instructions from the chart for further review. Total Time Total Time Spent Total Time Spent (In Minutes): 20 minutes Discharge Plan Discharge Items Patient Disposition: Home - Self-Care Reason For Visit: LUMBAR SPINAL STENOSIS WO NEUROGENIC CLAUDICATION Discharge Diagnosis: Lumbar spinal stenosis with neurogenic claudication Activity: As commented below Non-emergency contact: Primary Care Provider Call non-emergency contact if: you have any medication questions Follow-up/Referrals: Christie Fong D.O. [Primary Care Provider] - 05/18/19 11:15 am ([phone] [facility]. APPT WITH DR FONG.) Diet: Regular Addtl Attending Provider Instructions: ACTIVITY RECOMMENDATIONS: SELF CARE INSTRUCTIONS AFTER THORACIC/LUMBAR FUSIONS 1. You may walk to your tolerance. It is good exercise for your legs and back. Expect some back and intermittent leg aches and pains. 2. You may perform "counter-top" level activities (make a sandwich, ramon with a project, etc.). 3. No bending or lifting of more than 10 pounds or back twisting of any nature (roll like a log when turning in bed). 4. You may ride in a car for 20-30 minutes at a time. No driving until after your first visit with your doctor. 5. Frequent changes of position and restricting sitting to 30 minutes at a time will help limit the amount of back spasms and stiffness you may experience. 6. You may discontinue the use of ambulatory aids (cane, crutches, etc.) once your strength and confidence allow. 7. You may employment appeals examiner the shower and let water strike your incision when you arrive home at least once daily. Do not take a tub bath, sit in a hot tub or go into a swimming pool until after your first recheck in the office. SPECIAL CARE INSTRUCTIONS: VERY IMPORTANT TO READ AND REVIEW A. Your surgical incision has been closed with a cosmetic suture under the skin that will dissolve in about 6 weeks. In 14 days, you can use a pair of clean scissors and cut the suture that is left outside of the skin at the ends of your incision. 1. The small skin tapes can be removed 7 days after surgery if they have not fallen off by that point. 2. You may keep the wound open to air as much as possible to promote healing after post-op day number 5 unless told otherwise by your doctor. 3. If you think the wound looks like it is becoming infected (redness or worsening drainage) and/or you are experiencing fever, chill or worsening back pain and muscle spasms, contact the office so that we may evaluate you as soon as possible. B. Complications are uncommon, but please contact us if you have any signs or symptoms of: 1. wound infection (fever higher than 102.5 degrees F, redness, separation of wound, drainage, or increasing pain from the incision) 2. blood clots in legs (pain, swelling, redness and warmth in legs) 3. urinary tract infection (fever higher than 102.5 degrees F, burning upon urination or increased frequency of urination) 4. nerve problems (inability to walk on your toes or heels, numbness, loss of bowel or bladder control) 5. any other symptoms that concern you C. Please call the office at if you have any concerns or questions about your operation or recovery. D. No smoking! Smoking drastically decreases the chance of a solid fusion. E. Do not take any anti-inflammatory medications (Indocin, Advil, Motrin, Aspirin, Naprosyn, etc.) as these may inhibit the chance of a solid fusion. Tylenol is okay to take for pain. MANAGING PAIN AFTER SPINAL SURGERY 1. Narcotic medication is intended for short-term use and will be provided for surgical pain. Surgical pain usually lasts for a period of 4-6 weeks. Narcotic medication includes Percocet, Vicodin, Darvocet, Tylenol #3 or Lortab. 2. Longer-term pain is more appropriately treated with non-narcotic medication such as Tylenol ES. 3. Muscle spasm is not appropriately treated with narcotics. Muscle relaxers such as Soma, Flexeril or Skelaxin can be used along with Tylenol ES. 4. Remember that we all live with some "aches and pains". This is not unusual or uncommon after an injury or as we get older. a. Back pain is expected and may include muscle spasms for 4 to 6 weeks after surgery. The pain should gradually improve. If the pain worsens for no apparent reason, please contact the office. b. Intermittent leg pain may also be experienced and should not be concerned about unless it worsens for no apparent reason. If so, please contact the office. 5. We will provide appropriate medication within the normal guidelines of their prescribed use. We will also be very cautious and aware of potential abuse and extended duration of patients' medication needs. a. Pain medications are for your comfort and to assist with sleep and rest so that the tissue can heal. They are not provided in order to return to normal activity and should not be used through the day. To do so or worsening pain at night can result from ongoing tissue damage and development of tolerance to the prescribed medicine. 6. Please allow 2-3 days to process refills. Prescriptions will not be mailed but must be picked up at the office. FOLLOW UP VISIT: Keep your scheduled follow-up appointment. Any questions, please call the office at . Pending Studies at Discharge: No Stand-Alone Forms: My [employer], Smoking Cessation Medications and MI Order Prescriptions: New tramadol 50 mg tablet 50 mg PO Q6H PRN (Reason: pain, moderate) Qty: 30 RF: 0 oxycodone 5 mg tablet 5 mg PO Q6H PRN (Reason: pain, severe) Qty: 30 RF: 0 Continued prednisone 5 mg Tablet 7.5 mg PO QAM RF: 0 clopidogrel 75 mg Tablet 75 mg PO QAM RF: 0 acetaminophen [Tylenol Extra Strength] 500 mg Tablet 1,000 mg PO UD PRN (Reason: Pain) RF: 0 simvastatin 20 mg Tablet 20 mg PO QAM RF: 0 naproxen sodium [Aleve] 220 mg Tablet 220 mg PO UD PRN (Reason: Pain) RF: 0 folic acid 1 mg Tablet 3 mg PO DAILY RF: 0 Prilosec OTC 20 mg Tablet,Delayed Release (Dr/Ec) 20 mg PO HS RF: 0 Prolia 60 mg/mL Syringe 60 mg SUBCUT UD RF: 0 Breo Ellipta 100-25 mcg/dose Blister With Device 1 inh INHALATION UD PRN (Reason: ASTHMA) RF: 0 cranberry 400 mg Capsule 400 mg PO QAM RF: 0 Sinus Tablet 1 dose PO HS RF: 0 Cimzia 400 mg/2 mL (200 mg/mL x 2) Syringe Kit 400 mg SUBCUT MONTHLY RF: 0 Discontinued methotrexate sodium 2.5 mg Tablet 15 mg PO WK RF: 0 Discharge Orders: Discharge Order (Routine); Ordered 05/12/19 Ordered By: Jasvir Katz Admission Data Admit Date/Time: 05/10/19 12:27 Attending Provider: Jasvir Katz Admit Provider: Jasvir Katz Primary Care Provider: Christie Fong Other Providers: Tapan Raya ; Alea Kilgore I. ; Gina Krause
== END 2019-05-12 17:56 | disposition home or self-care (01) | DRG 454 ==
LOC: ASU 07:30 → 3E 12:27